=== PATIENT | male | born 1960 | race Two or more races ===

== ENCOUNTER 2025-02-10 06:01 | Emergency (ER) | payer MEDICARE, MEDICAID, SELFPAY ==
[2025-02-10 06:04] VITALS: BMI 29.8
[2025-02-10 06:19] VITALS: BP 175/95; PULSE 61; RESP 17; TEMP 36.6; O2SAT 96
[2025-02-10] MEDS: HYDROcodone/APAP 5/325 TABLET 1 TAB PO (08:01)
[2025-02-10] MEDS: LIDOCAINE JELLY 2% (Urojet) 10 ML TUBE TOP (08:01)
[2025-02-10] MEDS: ONDANSETRON ODT 4 MG TABRAP PO (08:01)
--- NOTE | 2025-02-10 08:30 | EDNOTE_ITS ---
ED General RME/HPI General Chief complaint: General Adult/Misc Complain Stated complaint: RECTAL PAIN Time Seen by Provider: 02/10/25 06:22 Arrival date/time: 02/10/25 06:01 This is a 64-year-old male that comes into the emergency room with complaints of rectal pain. Patient states he has had rectal pain on and off for the past few years. Patient states he has been constipated in the past. Patient states usually he strains and he knows he has hemorrhoids. Patient states that he recently held a friend lift heavy equipment and he felt like he strained a lot and as a result felt like he got more hemorrhoids. Patient states that he has been having small amounts of streaked blood in his stool but not much. Patient denies any abdominal pain nausea vomiting. Patient denies any other symptoms. Related Data Previous Rx's ?Medication ?Instructions ?Recorded hydrocodone 5 mg-acetaminophen 300 1 tab PO Q4H PRN pa in #30 tabs //18 mg tablet (Vicodin) hydrocodone 5 mg-acetaminophen 325 1 tab PO Q8H PRN pa in #7 tabs 02/10/25 mg tablet hydrocortisone 2.5 % topical cream 1 applic CA QDAY CA N hemorrhoids 02/10/25 with perineal applicator #30 grams (Proctozone-HC) lidocaine 5 % topical cream 1 applic topical BID PRN p ain #15 02/10/25 (RectiCare) grams sennosides 8.6 mg-docusate sodium 1 tab-cap PO BID #30 tabs 02/10/25 50 mg tablet (Senokot-S) Allergies Allergy/AdvReac Type Severity Reaction Status Date / Time No Known Allergies Allergy Verified 02/10/25 06:02 Review of Systems Review of Systems Systems Reviewed: All systems reviewed, normal except as documented Past Medical History Past Medical History NEUROLOGIC: Negative Neurological Disorders or Seizures CARDIAC: Negative Cardiac Disorders or Congestive Heart Failure RESPIRATORY: Negative Chronic Obstructive Pulmonary Disease (COPD) GASTROINTESTINAL: Negative Gastrointestinal Disorders GENITOURINARY: Negative Genitourinary Disorders or Renal Disease MUSCULOSKELETAL: Negative Musculoskeletal Disorders ENDOCRINE: Negative Endocrine Disorders, Diabetes Mellitus Type 1 or Diabetes Mellitus Type 2 HEMATOLOGIC: Negative Blood Disorders OTHER HISTORY: Negative Autoimmune Disease, MRSA or Clostridium Difficile Family History FAMILY HISTORY: Positive Family Cardiac Disorders (father) and Family Surgery (sister); Negative Family Anesthesia Reaction Surgical History SURGICAL: Positive Nose Surgery (sinus surgery 3mos ago); Negative Cardiac Surgery or Endocrine Surgery Social History SMOKING STATUS: Never smoker ED Exam Narrative Physical exam: VITAL SIGNS: Reviewed. GENERAL APPEARANCE: Alert and interactive, follows commands, no acute distress HEAD AND FACE: Non-traumatic. ENT: PERRL, conjuctiva pink and clear, eyelid no trauma, Mucous membrane moist. NECK: Supple, nontender, no nuchal rigidity. CHEST: No tenderness, no crepitus, no paradoxical movement, no retractions. LUNGS: breathing even and unlabored HEART: Regular rate, cap refill less than 2 seconds ABDOMEN: Soft, nondistended, nontender to palpation rectal exam: At a 9 o'clock position patient has approximately 2 cm external hemorrhoid at a 8-10 9 o'clock position patient has small hemorrhoids that appear to be possibly thrombosed. Patient is guaiac stool was positive for blood very faint NEUROLOGICAL: Gross motor function intact sensory function intact, Appropriate for age. MUSCULOSKELETAL: low back nontender, full range of motion. no midline tenderness, no meningismus, no step offs EXTREMITIES: No redness no swelling no skin breakdown on bilateral foot and leg. Distal neurovascular status intact bilateral foot SKIN: Color pink, dry Course Quality Measures none Orders Category Date Time Status HYDROcodone*/APAP 5/325 [[place]hu[place] 5/325] Med 02/10/25 07:54 Discontinued 1 tab PO X1 ONE Lidocaine Jelly 2% Urojet [Xylocaine Jelly 2% Urojet] Med 02/10/25 07:40 Discontinued See Dose Instructions TOP X1 ONE Ondansetron Odt [Zofran Odt] Med 02/10/25 07:54 Discontinued 4 mg PO X1 ONE Vital Signs Vital signs: Vital Signs Temperature 97.9 F 02/10/25 06:19 Pulse Rate 61 02/10/25 06:19 Respiratory Rate 17 02/10/25 06:19 Blood Pressure 175/95 H 02/10/25 06:19 Pulse Oximetry (%) 96 02/10/25 06:19 Oxygen Delivery Method Room Air 02/10/25 06:19 Discharge Plan Plan Patient Disposition: HOME (Self Care) Patient condition on transfer: Stable Prescriptions/Referrals Prescriptions/Med Rec: New hydrocortisone [Proctozone-HC] 2.5 % cream with perineal applicator 1 applic CA QDAY PRN (Reason: hemorrhoids) Qty: 30 0RF lidocaine [RectiCare] 5 % cream 1 applic topical BID PRN (Reason: pain) Qty: 15 0RF sennosides-docusate sodium [Senokot-S] 8.6-50 mg tablet 1 tab-cap PO BID Qty: 30 0RF hydrocodone-acetaminophen 5-325 mg tablet 1 tab PO Q8H MDD 3 PRN (Reason: pain) Qty: 7 0RF No Action hydrocodone-acetaminophen [Vicodin] 5-300 mg tablet 1 tab PO Q4H MDD 8 PRN (Reason: pain) Qty: 30 0RF Referrals: No Primary/Family,Physician [Primary Care Provider] - In 1 week Problem List Clinical Impression: External hemorrhoids, Hemorrhoids Patient/Caregiver Discharge Instructions Discharge Activity: activity as tolerated Education Materials: ED Hemorrhoids Additional Instructions: Please continue to take stool softeners. Please call tomorrow morning and make an appointment with primary doctor to be referred to a GI doctor for hemorrhoid treatment. I prescribed medication today another medication that might work [id number] is Preparation H with lidocaine cream. Please also do warm sitz bath's alongside increasing fiber and water intake to soften stools and prevent straining. Print Language: [place] Stand Alone Forms: Staci Award Info., Patient Portal Info Letter PA/SPECIAL DELIVERY CARRIER Supervising Physician PA/SPECIAL DELIVERY CARRIER Supervising Physician: florian BOND Narrative [facility] hospital course (for use when minimal MDM required): I discussed case at length with Dr. Roper. Because sometimes it is hard to distinguish whether the hemorrhoids are thrombosed or not at this time we will just treat symptomatically. I gave patient a Uro-Jet with lidocaine to help with the pain I also gave patient a dose of [place]. I did explain to patient at length that typically we do not like any narcotics as this can make the symptoms of constipation worse however I did explain to patient that he should only take norco if the pain really bad and not to mix with tylenol. Ibuprofen is probably not the best medication because of the bleeding. Patient has not had large amounts of blood from his rectum patient states it is just sometimes streaked when he has a bowel movement. Otherwise is not bleeding patient. I did encourage sitz bath's I prescribed proctoscopy zone and also a RectiCare lidocaine to see if this will help patient's pain however I did explain to patient that this is not covered by his insurance he can get [id number] Preparation H with lidocaine to help with the pain. I also in inform patient to increase his fiber and water intake to soften stools and prevent straining I prescribed patient Senokot to help him go to the bathroom. I explained the importance of make sure he follows up with his primary doctor about getting referred to a GI doctor. Patient verbalized understanding feels comfortable plan of care. Patient verbalizes feeling better after the [place] and the Uro-Jet of lidocaine to his rectum. Patient told to come back to the emergency room if he starts having profuse bleeding from his rectum or symptoms change or worsen. Patient and family member verbalized understanding. Dragon dictation: Although this document has been carefully reviewed, there may still be some phonetic and other typographical errors. These errors are purely grammatical due to imperfections in the software program and should not be construed in any way to compromise the substance of the patient's medical care during this visit. Clinical Information Provided by: patient Medical Records reviewed [facility] Meds/Rx considered, not ordered None Medication Administration(s) Medication Administration History Discontinued Medications Hydrocodone Bitart/Acetaminophen (Hydrocodone/Apap 5/325 Tablet) 1 tab PO X1 ONE Stop: 02/10/25 07:55 Last Admin: 02/10/25 08:01 Dose: 1 tab Documented By: GERMAN Lidocaine HCl (Lidocaine Jelly 2% (Urojet) 10 Ml Tube) 0 ml TOP X1 ONE Stop: 02/10/25 07:41 Last Admin: 02/10/25 08:01 Dose: 10 ml Documented By: GERMAN Comments: Administered by provider Ondansetron HCl (Ondansetron Odt 4 Mg Tabrap) 4 mg PO X1 ONE; Protocol Stop: 02/10/25 07:55 Last Admin: 02/10/25 08:01 Dose: 4 mg Documented By: GERMAN
== END 2025-02-10 10:03 | disposition home or self-care (01) ==
PROVIDERS: Emergency Provider Nurse Practitioner Family
DX: K64.4 Residual hemorrhoidal skin tags (principal); K64.9 Unspecified hemorrhoids
CPT/HCPCS: 99281; Q0162; A9270